=== PATIENT | male | born 1995 | race Caucasian/White ===

== ENCOUNTER 2021-08-29 22:55 | Inpatient (IN) | payer OTHER ==
[~2021-08-29] VITALS: Ht 175.3 cm; Wt 117.9 kg
[2021-08-29 23:17] LABS: HEMOGLOBIN 13.6 gm/dl (14.0-17.5); RED BLOOD COUNT 4.36 M/UL (4.20-5.50); WHITE BLOOD COUNT 17.2 K/UL (4.5-11.0)
[2021-08-29 23:43] LABS: BUN/CREATININE RATIO 9 (0-10)
[2021-08-30 06:05] LABS: HEMOGLOBIN 13.3 gm/dl (14.0-17.5); RED BLOOD COUNT 4.33 M/UL (4.20-5.50); WHITE BLOOD COUNT 11.2 K/UL (4.5-11.0)
[2021-08-30] MEDS ORDERED: PROTONIX 40 MG40 M1 PO (07:16)
[2021-08-30] MEDS ORDERED: BUPRENORPHIN-N1 EACH SL (07:16)
[2021-08-30] MEDS ORDERED: OMEPRAZOLE-BIC1 EAC1 PO (07:17)
[2021-08-30] MEDS ORDERED: BUSPIRONE HCL15 MG PO (07:17)
[2021-08-30] MEDS ORDERED: EFFEXOR 25 MG T25 MG PO (07:22)
[2021-08-30] MEDS ORDERED: MIRTAZAPINE30 MG PO (07:22)
[2021-08-30] MEDS ORDERED: AMITRIPTYLINE100 MG PO (07:23)
[2021-08-30] MEDS ORDERED: EFFEXOR XR 75 M75 MG PO (07:23)
[2021-08-30] MEDS ORDERED: HYDROXYZINE HCL25 MG PO (07:25)
[2021-08-30] MEDS ORDERED: LISINOPRIL-HCT1 EACH PO (07:32)
[2021-08-30] MEDS ORDERED: CETIRIZINE HCL10 MG PO (07:33)
--- NOTE | 2021-08-30 17:35 | NUR ---
spoken to pharmacist r/t dr. jonas's order of pharmacy to avoid qt proloning meds.
[2021-08-31 06:25] LABS: HEMOGLOBIN 12.4 gm/dl (14.0-17.5); RED BLOOD COUNT 4.13 M/UL (4.20-5.50)
[2021-08-31 06:27] LABS: WHITE BLOOD COUNT 6.9 K/UL (4.5-11.0)
[2021-08-31] MEDS ORDERED: AMLODIPINE BESYL5 MG PO (08:55)
== END 2021-08-31 15:17 | disposition home or self-care (01) | DRG 683 ==
LOC: ER1 22:55 → CDU 08-30 01:28 → M/S 08-30 14:30
PROVIDERS: Internal Medicine; Internal Medicine Nephrology; Student in an Organized Health Care Education/Training Program; ADMIT Internal Medicine
DX: N17.9 Acute kidney failure, unspecified (principal); E87.1 Hypo-osmolality and hyponatremia; E87.2 Acidosis; I10 Essential (primary) hypertension; F32.A Depression, unspecified; F17.210 Nicotine dependence, cigarettes, uncomplicated; E86.0 Dehydration; E66.9 Obesity, unspecified; F15.10 Other stimulant abuse, uncomplicated; I95.9 Hypotension, unspecified; E87.6 Hypokalemia; Z96.659 Presence of unspecified artificial knee joint; F41.9 Anxiety disorder, unspecified; Z20.822 Contact with and (suspected) exposure to COVID-19; T50.2X5A Adverse effect of carbonic-anhydrase inhibitors, benzothiadiazides and other diuretics, initial encounter; E87.5 Hyperkalemia; Z90.49 Acquired absence of other specified parts of digestive tract; Z82.49 Family history of ischemic heart disease and other diseases of the circulatory system; Z87.442 Personal history of urinary calculi; Z88.8 Allergy status to other drugs, medicaments and biological substances; Z68.39 Body mass index [BMI] 39.0-39.9, adult
CPT/HCPCS: 36415; 36600; 71045; 80048; 80053; 80307; 81001; 82550; 82553; 82570; 82803; 83605; 83735; 83874; 84300; 84484; 85025; 87040; 87086; 89050; 93005; 99285; G0480; J1644; J2405; J3480; J7030; P9047; U0002

== ENCOUNTER 2021-09-01 10:04 | Emergency (ER) | payer OTHER ==
[~2021-09-01 10:04] MED LIST: AMITRIPTYLINE100 MG PO; AMLODIPINE BESYL5 MG PO; BUPRENORPHIN-N1 EACH SL; BUSPIRONE HCL15 MG PO; CETIRIZINE HCL10 MG PO; EFFEXOR 25 MG T25 MG PO; EFFEXOR XR 75 M75 MG PO; HYDROXYZINE HCL25 MG PO; LISINOPRIL-HCT1 EACH PO; MIRTAZAPINE30 MG PO; OMEPRAZOLE-BIC1 EAC1 PO; PROTONIX 40 MG40 M1 PO
[2021-09-01 12:19] LABS: HEMOGLOBIN 12.3 gm/dl (14.0-17.5); RED BLOOD COUNT 4.04 M/UL (4.20-5.50); WHITE BLOOD COUNT 8.5 K/UL (4.5-11.0)
[2021-09-01 12:44] LABS: BUN/CREATININE RATIO 16 (0-10)
== END 2021-09-01 14:40 | disposition home or self-care (01) ==
LOC: ER1 10:04
PROVIDERS: Physician Assistant
DX: R10.9 Unspecified abdominal pain (principal); R00.0 Tachycardia, unspecified; I10 Essential (primary) hypertension; F17.200 Nicotine dependence, unspecified, uncomplicated
CPT/HCPCS: 80053; 81001; 83605; 85025; 87040; 99284; J7030